=== PATIENT | female | born 1980 | race Caucasian/White ===

== ENCOUNTER → 2023-07-14 17:07 | Outpatient (REF) | payer OTHER, SELFPAY | LOC: WDC 17:07 | PROVIDERS: ATTENDING PHYSICIAN Obstetrics & Gynecology; FAMILY PHYSICIAN Nurse Practitioner | DX: Z12.31 Encounter for screening mammogram for malignant neoplasm of breast (principal); N94.89 Other specified conditions associated with female genital organs and menstrual cycle | CPT/HCPCS: 76830; 76856; 77063; 77067 ==

== ENCOUNTER → 2023-07-21 18:41 | Outpatient (REF) | payer OTHER, SELFPAY | LOC: MRI 3T 18:41 | PROVIDERS: ATTENDING PHYSICIAN Obstetrics & Gynecology | DX: R92.30 Dense breasts, unspecified (principal) | CPT/HCPCS: 77049; A9585 ==

== ENCOUNTER → 2024-07-14 15:44 | Outpatient (REF) | payer OTHER, SELFPAY | LOC: WDC 15:44 | PROVIDERS: ATTENDING PHYSICIAN Obstetrics & Gynecology; FAMILY PHYSICIAN Nurse Practitioner | DX: Z12.31 Encounter for screening mammogram for malignant neoplasm of breast (principal) | CPT/HCPCS: 77063; 77067 ==